=== PATIENT | female | born 1950 | race African-American/Black ===

== ENCOUNTER 2017-05-20 23:55 | Outpatient (CLI) | payer MEDICARE, OTHER | END 2017-05-20 23:56 | disposition short-term general hospital (02) | LOC: EMS 23:55 | PROVIDERS: ATTEND Surgery | DX: R00.2 Palpitations (principal) | CPT/HCPCS: A0425; A0427 ==

== ENCOUNTER 2023-04-06 07:18 | Emergency (ER) | payer MEDICARE, OTHER ==
--- NOTE | 2023-04-06 07:34 | ED Physician Documentation ---
PD HPI ABD PAIN - Stated complaint Stated Complaint: GI/ABD PX - Chief complaint Chief Complaint: Abd Pain - History obtained from History obtained from: Patient - History of Present Illness Timing - details: Gradual onset, Still present (she states the pain had been decreasing gradually since recent ER visit. Normal urination/stools. Noted some wisps of blood without clots in stool last night. Has had some mucous SD) Pain level max: 8 Pain level now: 4 Quality: Cramping, Aching, Pain Location: LLQ Radiation: No: Chest, Lower back, Left flank Improved by: No: Eating Worsened by: Moving, Palpation. No: Eating, Breathing Associated symptoms: Nausea. No: Fever, Diarrhea (loose but small in volume.) Similar symptoms before: Has not had sx before Recently seen: Emergency Dept (seen 3 days ago with similar symptmos And Dx with divertiulitis, Rx with Augmentin. Taking some iburpofen and Tyenol PRN.) Review of Systems Constitutional: denies: Fever, Chills Nose: denies: Rhinorrhea / runny nose, Congestion Throat: denies: Sore throat Respiratory: denies: Cough GI: reports: Abdominal Pain, Nausea, Bloody / black stool (today noted small wisps of blood in stool, no clots. Has some mucous.). 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, Other (breast bx - benign) HEENT: Tonsil/Adenoidectomy - Present Medications Home Medications: Ambulatory Orders Medication Instructions Recorded Confirmed hydroCHLOROthiazide 25 mg PO DAILY 05/17/15 04/02/23 [Hydrochlorothiazide] Amox/Clav 875/125 [Augmentin] 1 tab PO Q12H #20 tablet 04/02/23 - Allergies Allergies/Adverse Reactions: Allergies Allergy/AdvReac Type Severity Reaction Status Date / Time doxycycline AdvReac Severe Nausea Verified 04/06/23 07:26 - Social History Does the pt smoke?: No Smoking Status: Never smoker Does the pt drink ETOH?: No Does the pt have substance abuse?: No - Immunizations Immunizations are current?: Yes PD ED PE NORMAL - Vitals Vital signs reviewed: Yes - General General: Alert and oriented X 3, No acute distress, Well developed/nourished - Neck Neck: Supple, no meningeal sign, No adenopathy - Cardiac Cardiac: RRR, No murmur - Respiratory Respiratory: Clear bilaterally - Abdomen Abdomen: Normal bowel sounds, Soft, Non distended, No organomegaly, Other (tender without guarding nor percussion tenderness left lower abd. ) - Derm Derm: Normal color, Warm and dry - Extremities Extremities: No edema, No calf tenderness / cord - Neuro Neuro: Alert and oriented X 3, No motor deficit, Normal speech Results - Vitals Vitals: Vital Signs - 24 hr 04/06/23 04/06/23 07:24 09:47 Temperature 35.9 C L Heart Rate 72 64 Respiratory 20 20 Rate Blood Pressure 172/82 H 161/80 H O2 Saturation 97 100 Oxygen O2 Source Room air - Rads (name of study) abd/pelvic VT Relevant Findings:: Prelim report reviewed (minimal findings c/s diverticulitis sigmoid area. Less evident than recent other CT. ), See rad report PD Medical Decision Making - ED course Complexity details: reviewed results (no abscess nor perforation. The description of findings today seem less prominent than prior one. So I would have her continue Augmentin, and add NSAIDs, progress diet. Unclear the casue of increased pain last night. Might have been intestinal spasm, unsure. ), considered differential (abd not much tender. She did have increased pain for few hours last night, with some trace of blood in stool this morning. These were on list of things to watch for. Will get repeat CT to eval for perforation/abscess/obstruction. ), d/w patient Departure - Departure Disposition: 01 Home, Self Care Clinical Impression: Acute diverticulitis Condition: Stable Record reviewed to determine appropriate education?: Yes Comments: Your CT scan today does not show any complications of the diverticulitis. No abscesses nor perforation. No other abnormality to account for the pain such as kidney stones etc. The degree of inflammation today compared to 4 days ago does seem improving. As such I would have you continue with the Augmentin. You can have a more regular diet if you would like. Stay well-hydrated. Consider adding some anti-inflammatory such as ibuprofen or naproxen twice daily to help with pains or inflammation. A little bit of bleeding with diverticulitis is not uncommon. Return if increased amount of bleeding, fevers, increased pain, vomiting or other concerns. It is unclear the cause of the severe pain episode you had last night. Consideration could be an intestinal spasm in the area of the inflammation. Return if recurrent episodes that way. Forms: PCP List Discharge Date/Time: 04/06/23 10:52
[2023-04-06] MEDS ORDERED: iohexoL-300 100 ML VIAL ONE (09:29)
[2023-04-06] MEDS ORDERED: KETOROLAC 15 MG/ML VIAL IVP STA (09:31)
[2023-04-06] MEDS ORDERED: iohexoL-300 100 ML VIAL IVP ONE (09:43)
--- NOTE | 2023-04-06 09:45 | CT Report ---
PROCEDURE: ABDOMEN/PELVIS W INDICATIONS: recent Dx diverticulitis; worse pain last evening CONTRAST: 100 omni 300 TECHNIQUE: After the administration of intravenous contrast, 5 mm thick sections acquired from the diaphragms to the symphysis. 5 mm thick coronal and sagittal reformats were acquired. For radiation dose reducti on, the following was used: automated exposure control, adjustment of mA and/or kV according to jonathan ent size. COMPARISON: 04/02/2023 FINDINGS: Image quality: Excellent. Lung bases and heart: Unremarkable. Liver: No solid mass. Gallbladder and biliary tree: Surgically absent Spleen: No splenomegaly. Pancreas: No pancreatic ductal dilation. Adrenals: No adrenal nodule. Kidneys and ureters: No hydronephrosis. No renal cystic lesion which requires follow up. No solid mas s. Bowel and peritoneum: No bowel distension. No pathologic free fluid. There is moderately advanced sig moid diverticulosis. Question very subtle changes of diverticulitis. No development of free air or fr ee fluid or abscess cavity. Lymph nodes: No central or retroperitoneal adenopathy. Vessels: No infrarenal aortic aneurysm. PELVIS Reproductive organs: Uterus is surgically absent. No adnexal masses.. Bladder: No abnormal wall thickening, accounting for underdistension. Pelvic lymph nodes: No pelvic adenopathy by size criteria. Bones: No aggressive osseous abnormality. Other: No significant ventral or inguinal hernia. IMPRESSION: 1. Moderately advanced sigmoid diverticulosis with question of subtle changes of diverticulitis. Find ings are stable. No free air or free fluid or abscess cavity. 2. Remote cholecystectomy and hysterectomy. Reviewed by: Julio Edgar MD on 04/06/2023 9:43 AM PDT Approved by: Julio Edgar MD on 04/06/2023 9:43 AM PDT Station ID: [id number]
[2023-04-06 09:56] VITALS: BP 161/80
== END 2023-04-06 10:52 | disposition home or self-care (01) ==
LOC: ED 07:18
DX: K57.32 Diverticulitis of large intestine without perforation or abscess without bleeding (principal)
CPT/HCPCS: 74177; 96374; 99282; 99284; Q9967

== ENCOUNTER 2023-06-15 11:51 | Emergency (ER) | payer MEDICARE, OTHER ==
[2023-06-15 12:13] VITALS: O2SAT 100
[2023-06-15] MEDS ORDERED: KETOROLAC 15 MG/ML VIAL IVP STA (12:24)
[2023-06-15] MEDS ORDERED: SODIUM CHLORIDE 0.9% 1,000 ML IV STA (12:25)
[2023-06-15 12:40] LABS: BASOPHILS % (AUTO) 0.6 %; EOSINOPHILS % (AUTO) 0.3 %; HCT - HEMATOCRIT 44.6 % (37.0-47.0); HGB - HEMOGLOBIN 15.2 g/dL (12.0-16.0); LYMPHOCYTES # (AUTO) 1.4 10^3/uL (1.5-3.5); LYMPHOCYTES % (AUTO) 20.8 %; MEAN CORPUSCULAR HEMOGLOBIN 28.1 pg (27.0-31.0); MEAN CORPUSCULAR HGB CONC 34.1 g/dL (32.0-36.0); MEAN CORPUSCULAR VOLUME 82.4 fL (81.0-99.0); MEAN PLATELET VOLUME 8.9 fL (7.9-10.8); MONOCYTES # (AUTO) 0.4 10^3/uL (0.0-1.0); MONOCYTES % (AUTO) 5.6 %; NEUTROPHILS % (AUTO) 72.3 %; PLT - PLATELET COUNT 281 10^3/uL (130-450); RED BLOOD COUNT 5.41 10^6/uL (4.20-5.40); RED CELL DISTRIBUTION WIDTH 12.5 % (12.0-15.0); WHITE BLOOD COUNT 6.9 x10^3/uL (4.8-10.8)
[2023-06-15 12:47] LABS: BILIRUBIN,URINE NEGATIVE (NEGATIVE); CLARITY,URINE CLEAR (CLEAR); GLUCOSE, URINE (UA) NEGATIVE (NEGATIVE); KETONES,URINE (UA) NEGATIVE (NEGATIVE); LEUKOCYTE ESTERASE, URINE NEGATIVE (NEGATIVE); NITRITE,URINE NEGATIVE (NEGATIVE); OCCULT BLOOD,URINE NEGATIVE (NEGATIVE); PROTEIN,URINE NEGATIVE (NEGATIVE); UROBILINOGEN,URINE 0.2 (NORMAL) E.U./dL (NORMAL)
[2023-06-15 12:52] LABS: ALBUMIN 4.7 g/dL (3.2-5.5); ALBUMIN/GLOBULIN RATIO 1.8 (1.0-2.2); BILIRUBIN,TOTAL 0.9 mg/dL (0.2-1.0); CALCIUM 9.9 mg/dL (8.5-10.3); CREATININE 0.5 mg/dL (0.6-1.3); POTASSIUM 3.2 mmol/L (3.5-4.5); TOTAL PROTEIN 7.3 g/dL (6.4-8.9)
[2023-06-15] MEDS ORDERED: POTASSIUM BICARB 25 MEQ TABLET PO STA (13:01)
--- NOTE | 2023-06-15 13:49 | ED Physician Documentation ---
PD HPI ABD PAIN - Stated complaint Stated Complaint: ABD PX/D - Chief complaint Chief Complaint: Abd Pain - History obtained from History obtained from: Patient - Additional information Additional information: Pt is a 73 yo female with history Of diverticulitis presenting for evaluation of intermittent right lower abdominal pain since having a colonoscopy a few months ago. Patient states that she was seen here this summer for diverticulitis which was found on the left side and had an outpatient colonoscopy done at [facility] that showed extensive colonic diverticulosis. She reports having had intermittent episodes of right lower quadrant pain since that time. No nausea or vomiting. No bloody stools. No diarrhea and she has had several bowel movements today. No chest pain, shortness of air or fever. Review of Systems Constitutional: denies: Fever Cardiac: denies: Chest pain / pressure Respiratory: denies: Dyspnea GI: reports: Abdominal Pain. 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, Other HEENT: Tonsil/Adenoidectomy - Present Medications Home Medications: Ambulatory Orders Medication Instructions Recorded Confirmed hydroCHLOROthiazide 25 mg PO DAILY 05/17/15 04/02/23 [Hydrochlorothiazide] - Allergies Allergies/Adverse Reactions: Allergies Allergy/AdvReac Type Severity Reaction Status Date / Time doxycycline AdvReac Severe Nausea Verified 06/15/23 12:38 - Social History Does the pt smoke?: No Smoking Status: Never smoker Does the pt drink ETOH?: No Does the pt have substance abuse?: No - Immunizations Immunizations are current?: Yes PD ED PE NORMAL - General General: Alert and oriented X 3, No acute distress, Well developed/nourished - HEENT HEENT: Atraumatic, Moist mucous membranes, Pharynx benign - Neck Neck: Supple, no meningeal sign - Cardiac Cardiac: RRR, No murmur - Respiratory Respiratory: No respiratory distress, Clear bilaterally - Abdomen Abdomen: Normal bowel sounds, Soft, Non distended, Other (Mild generalized lower abdominal tenderness, no rebound, no guarding) - Derm Derm: Warm and dry - Neuro Neuro: Normal speech Results - Vitals Vitals: Vital Signs - 24 hr 06/15/23 06/15/23 12:05 14:26 Temperature 36.1 C L Heart Rate 78 68 Respiratory 18 68 H Rate Blood Pressure 185/81 H 171/81 H O2 Saturation 100 100 Oxygen O2 Source Room air - Labs Labs: Laboratory Tests 06/15/23 06/15/23 06/15/23 12:29 12:33 12:33 WBC 6.9 RBC 5.41 H Hgb 15.2 Hct 44.6 MCV 82.4 MCH 28.1 MCHC 34.1 RDW 12.5 Plt Count 281 MPV 8.9 Neut # (Auto) 5.0 Lymph # (Auto) 1.4 L [place] # (Auto) 0.4 Eos # (Auto) 0.0 Baso # (Auto) 0.0 Absolute Nucleated RBC 0.00 Nucleated RBC % 0.0 Sodium 137 Potassium 3.2 L Chloride 100 L Carbon Dioxide 27 Anion Gap 10.0 BUN 13 Creatinine 0.5 L Estimated GFR (MDRD) 147 Glucose 107 H Calcium 9.9 Total Bilirubin 0.9 AST 15 ALT 19 Alkaline Phosphatase 75 Total Protein 7.3 Albumin 4.7 Globulin 2.6 Albumin/Globulin Ratio 1.8 Lipase 46 Urine Color YELLOW Urine Clarity CLEAR Urine pH 6.0 Ur Specific [place] <=1.005 Urine Protein NEGATIVE Urine Glucose (UA) NEGATIVE Urine Ketones NEGATIVE Urine Occult Blood NEGATIVE Urine Nitrite NEGATIVE Urine Bilirubin NEGATIVE Urine Urobilinogen 0.2 (NORMAL) Ur Leukocyte Esterase NEGATIVE Ur Microscopic Review NOT INDICATED PD Medical Decision Making - ED course Complexity details: reviewed results, re-evaluated patient, d/w patient ED course: Patient is a 73-year-old female presenting for evaluation of right lower abdominal pain since this morning. Has had intermittent episodes since having a colonoscopy a few months ago. Has a history of diverticulitis. Vital signs are stable. Overall abdominal exam is benign with no signs of peritonitis. CBC, chemistries were obtained and reviewed and without significant findings. CT scan of the abdomen pelvis which I reviewed is negative for diverticulitis or other acute process. Patient is feeling better here with IV fluids, Toradol, Zofran. She is counseled on continued supportive care as well as need for close follow-up with PCP or GI should her symptoms continue. She is also advised on strict return precautions for any worsening symptoms. Departure - Departure Disposition: 01 Home, Self Care Clinical Impression: Lower abdominal pain Condition: Stable Instructions: ED Abdominal Pain Female Non-Specific Abdominal Pain Comments: Your labs are reassuring today with a normal white count. Your potassium was slightly low and I did give you a potassium pill. Your CT scan does not reveal any sources for your pain including no signs of appendicitis or diverticulitis at this time. I would recommend close follow-up with your primary care provider. Return to the emergency department with any worsening symptoms. Forms: PCP List Discharge Date/Time: 06/15/23 14:26
--- NOTE | 2023-06-15 13:55 | CT Report ---
PROCEDURE: CT abdomen pelvis with contrast INDICATIONS: RLQ pain TECHNIQUE: Helical axial CT of the abdomen and pelvis was obtained after intravenous contrast adminis tration and reformatted in multiple planes. Radiation dose reduction was achieved using automated exp osure control or adjustment of mA and/or kV according to patient size. COMPARISON: None FINDINGS: Lower thorax: The lung bases are clear. Heart size normal. No hiatal hernia. Liver: Normal in size and attenuation. No contour deformity present. Biliary system: Cholecystectomy Pancreas: Unremarkable without mass or inflammation evident. Spleen: Normal in size and density. Adrenals: Normal morphology and density. Reproductive system: Hysterectomy Urinary system: Normal renal size and attenuation. No renal calculi, hydronephrosis, or solid mass p resent. Urinary bladder unremarkable. Left renal cyst Gastrointestinal system: Multiple diverticula arise from the sigmoid colon without evidence of diver ticulitis. No evidence of bowel obstruction Appendix: Normal appendix identified. Peritoneal spaces: No mesenteric or retroperitoneal adenopathy. No free air. No free fluid. Vasculature: The IVC, aorta and iliac vasculature are unremarkable. Abdominal wall: Abdominal wall is intact without evidence of ventral or inguinal hernias. Musculoskeletal: Normal bone mineralization. No acute fractures. IMPRESSION: No acute CT findings in the abdomen and pelvis. Normal appendix identified. No appendicitis. Diverticulosis without evidence of diverticulitis Reviewed by: Mahad Siegel MD on 06/15/2023 12:53 PM [email or web address] Approved by: Mahad Siegel MD on 06/15/2023 12:53 PM AKFARHAD Station ID: [id number]
[2023-06-15 14:33] VITALS: BP 171/81
[2023-06-15] MEDS ORDERED: iohexoL-300 100 ML VIAL IVP ONE (15:05)
== END 2023-06-15 14:26 | disposition home or self-care (01) ==
LOC: ED 11:51
DX: R10.31 Right lower quadrant pain (principal); I10 Essential (primary) hypertension; Z79.899 Other long term (current) drug therapy
CPT/HCPCS: 36415; 74177; 80053; 81003; 83690; 85025; 96374; 99283; 99284; A9270; Q9967; 81001

== ENCOUNTER 2024-04-21 19:12 | Emergency (ER) | payer MEDICARE, OTHER ==
[2024-04-21 19:49] LABS: BASOPHILS % (AUTO) 0.4 %; EOSINOPHILS # (AUTO) 0.1 10^3/uL (0.0-0.7); EOSINOPHILS % (AUTO) 1.6 %; HCT - HEMATOCRIT 40.8 % (37.0-47.0); HGB - HEMOGLOBIN 14.4 g/dL (12.0-16.0); LYMPHOCYTES # (AUTO) 2.4 10^3/uL (1.5-3.5); LYMPHOCYTES % (AUTO) 32.2 %; MEAN CORPUSCULAR HEMOGLOBIN 28.2 pg (27.0-31.0); MEAN CORPUSCULAR HGB CONC 35.3 g/dL (32.0-36.0); MONOCYTES # (AUTO) 0.5 10^3/uL (0.0-1.0); MONOCYTES % (AUTO) 6.1 %; NEUTROPHILS # (AUTO) 4.4 10^3/uL (1.5-6.6); NEUTROPHILS % (AUTO) 59.4 %; PLT - PLATELET COUNT 271 10^3/uL (130-450); RED CELL DISTRIBUTION WIDTH 12.3 % (12.0-15.0); WHITE BLOOD COUNT 7.5 x10^3/uL (4.8-10.8)
--- NOTE | 2024-04-21 19:55 | ED Physician Documentation ---
History of Present Illness - Stated complaint Stated Complaint: HEART PALPITATIONS - Chief complaint Chief Complaint: Cardiac - Additonal information Additional information: Patient is a 74-year-old female who presents to the emergency department with symptoms of palpitations. Symptoms started around 2 PM and have been going on every other minute according to patient. She denies feeling lightheadedness dizzy short of breath or any pain associated with the symptoms. She took her pulse at home and noted it was normal so she came to the emergency department. Patient has a history of hypertension and takes hydrochlorothiazide and prev iously was on atenolol but stopped this medication as it made her lightheaded. She notes this was multiple years ago. She has no history of atrial fibrillation no history of SVT. She denies any recent diarrhea nausea or vomiting. She denies any fevers cough chills. 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[employer]: Hysterectomy, Other HEENT: Tonsil/Adenoidectomy - Present Medications Home Medications: Ambulatory Orders Medication Instructions Recorded Confirmed hydroCHLOROthiazide 25 mg PO DAILY 05/17/15 04/21/24 [Hydrochlorothiazide] Potassium Chloride [Klor-Con] 20 meq PO DAILY #10 packet 04/21/24 - Allergies Allergies/Adverse Reactions: Allergies Allergy/AdvReac Type Severity Reaction Status Date / Time doxycycline AdvReac Severe Nausea Verified 04/21/24 19:19 - Social History Does the pt smoke?: No Smoking Status: Never smoker Does the pt drink ETOH?: No Does the pt have substance abuse?: No - Immunizations Immunizations are current?: Yes PD ED PE NORMAL - Vitals Vital signs reviewed: Yes - General General: Alert and oriented X 3 - HEENT HEENT: Atraumatic - Neck Neck: Supple, no meningeal sign - Cardiac Cardiac: RRR, No murmur, No gallop, No rub, Strong equal pulses - Respiratory Respiratory: No respiratory distress, Clear bilaterally - Abdomen Abdomen: Normal bowel sounds - Female Female : Deferred - Rectal Rectal: Deferred - Back Back: No CVA TTP - Derm Derm: Normal color - Extremities Extremities: No deformity - Neuro Neuro: Alert and oriented X 3 - Psych Psych: Normal mood, Normal affect Results - Vitals Vitals: Vital Signs - 24 hr 04/21/24 04/21/24 19:20 20:09 Temperature 36.7 C Heart Rate 66 72 Respiratory 18 16 Rate Blood Pressure 180/80 H 174/99 H O2 Saturation 100 99 Oxygen O2 Source Room air - EKG (time done) 1920 EKG releavant findings:: EKG personally interpreted by author of this note. Relevant findings are: Rate: Rate (enter#), Gerardo, Tachy, Other Rhythm: NSR [place]: Normal Intervals: Normal ND QRS: Normal Ischemia: Normal ST segments Compare to prior EKG: Old EKG unavailable Computer interpretation: Agree with computer - Labs Labs: Laboratory Tests 04/21/24 04/21/24 04/21/24 19:44 19:44 19:44 WBC 7.5 RBC 5.10 Hgb 14.4 Hct 40.8 MCV 80.0 L MCH 28.2 MCHC 35.3 RDW 12.3 Plt Count 271 MPV 9.0 Neut # (Auto) 4.4 Lymph # (Auto) 2.4 [place] # (Auto) 0.5 Eos # (Auto) 0.1 Baso # (Auto) 0.0 Absolute Nucleated RBC 0.00 Nucleated RBC % 0.0 Sodium 135 Potassium 3.0 L Chloride 100 L Carbon Dioxide 27 Anion Gap 8.0 BUN 13 Creatinine 0.6 Estimated GFR (MDRD) 119 Glucose 102 Calcium 9.9 Magnesium 1.6 L Total Bilirubin 0.7 AST 16 ALT 16 Alkaline Phosphatase 62 Troponin I High Sens 3.6 Total Protein 6.7 Albumin 4.2 Globulin 2.5 Albumin/Globulin Ratio 1.7 TSH 3.46 PD Medical Decision Making - ED course Complexity details: reviewed old records, reviewed results ED course: Patient is a 74-year-old female with past medical history of hypertension presents to the emergency department with feelings of palpitations that started around 2 PM. Patient was at rest when symptoms started. She denies any associated symptoms including chest pain shortness of breath dizziness or lightheadedness. Vitals on arrival show patient is nontachycardic blood pressure slightly elevated in the 180s she did endorse taking her hydrochlorothiazide today. Physical exam is unremarkable. Pulses intact in upper and lower extremities. Normal cardiac and lung sounds on auscultation. Labs obtained here in the emergency department showed no significant leukocytosis. Potassium noted at 3.0 and magnesium at 1.6. Will replace here in the emergency department. Patient remained on telemetry while here in the emergency department. No signs of arrhythmias here in the emergency department. TSH is within normal range and no other significant electrolyte abnormality. Symptoms of palpitations could be secondary to hypokalemia and hypomagnesemia causing patient's symptoms. Discussed with patient we will replace here in the emergency department and give oral potassium supplements for patient to take at home. She is instructed to increase fruit and vegetable intake to help with symptoms at home as well. She will follow-up with her primary care doctor for reevaluation in 1 week to ensure no persistent hypokalemia. Will keep patient on hydrochlorothiazide but she has had adverse reactions to other antihypertensives. Discussed with patient we will have her on potassium supplements to help prevent worsening hypokalemia. Patient understands and is agreeable with this plan.Patient instructed to return with any dizziness lightheadedness persistent palpitations chest pain or shortness of breath. Patient understands and is agreeable with this plan. Departure - Departure Disposition: 01 Home, Self Care Clinical Impression: Hypokalemia, Hypomagnesemia Condition: Good Instructions: Hypokalemia Dc, Diet High Potassium Dc Comments: You were seen here in the emergency department your workup showed low potassium and magnesium levels this could explain your palpitations no arrhythmias noted on your EKG or on telemetry while you were monitored here. Follow-up with your PCP for recheck of these labs in 1 week. Return to the emergency department for any chest pain dizziness lightheadedness shortness of breath. Forms: PCP List
[2024-04-21 20:08] LABS: ALBUMIN 4.2 g/dL (3.2-5.5); ALBUMIN/GLOBULIN RATIO 1.7 (1.0-2.2); BILIRUBIN,TOTAL 0.7 mg/dL (0.2-1.0); CALCIUM 9.9 mg/dL (8.5-10.3); CREATININE 0.6 mg/dL (0.6-1.3); MAGNESIUM 1.6 mg/dL (1.7-2.3); TOTAL PROTEIN 6.7 g/dL (6.4-8.9)
[2024-04-21 20:10] LABS: TROPONIN I HIGH SENSITIVITY 3.6 ng/L (2.3-14.8)
[2024-04-21] MEDS: POTASSIUM CHLOR 10 MEQ/100 ML 10 MEQ/100 ML BAG IV STA (21:26)
[2024-04-21] MEDS: POTASSIUM CHLORIDE 20 MEQ TABLET PO STA (21:26)
[2024-04-21] MEDS: MAGNESIUM SULFATE 1 GM/2 ML VIAL IVP STA (21:29)
[2024-04-21] MEDS: MAGNESIUM SULFATE 2 GRAM 2 GM/50 ML BAG IV ONE (22:18)
[2024-04-21 22:58] VITALS: BP 152/72; O2SAT 98
== END 2024-04-21 22:51 | disposition home or self-care (01) ==
LOC: ED 19:12
DX: E87.6 Hypokalemia (principal); E83.42 Hypomagnesemia; I10 Essential (primary) hypertension
CPT/HCPCS: 36415; 80053; 83735; 84443; 84484; 85025; 93005; 96365; 96368; 99283; 99284; A9270

== ENCOUNTER 2024-05-07 17:31 | Emergency (ER) | payer MEDICARE, OTHER ==
[2024-05-07 18:04] VITALS: BP 186/99; O2SAT 100
--- NOTE | 2024-05-07 18:10 | ED Physician Documentation ---
History of Present Illness - Stated complaint Stated Complaint: HIGH BP - Chief complaint Chief Complaint: Cardiac - History obtained from History obtained from: Patient - Additonal information Additional information: 74-year-old woman with history of hypertension, she was maintained long-term on hydrochlorothiazide but recently switched to telmisartan due to hypokalemia. That switch took place about a week ago. Blood pressure has been climbing over the last few days up to 180/90 today. She feels a little jittery but otherwise fine without chest pain, trouble breathing, urinary complaints or pedal edema. PD PAST MEDICAL HISTORY - Past Medical History Cardiovascular: Hypertension Respiratory: None Neuro: None Endocrine/Autoimmune: None GI: Diverticulitis - Past Surgical History Past Surgical History: Yes /YOGA TEACHER: Hysterectomy, Other HEENT: Tonsil/Adenoidectomy - Present Medications Home Medications: Ambulatory Orders Medication Instructions Recorded Confirmed Telmisartan 20 mg PO DAILY 05/07/24 05/07/24 - Allergies Allergies/Adverse Reactions: Allergies Allergy/AdvReac Type Severity Reaction Status Date / Time doxycycline AdvReac Severe Nausea Verified 04/21/24 19:19 - Social History Does the pt smoke?: No Smoking Status: Never smoker Does the pt drink ETOH?: No Does the pt have substance abuse?: No - Immunizations Immunizations are current?: Yes PD ED PE NORMAL - Vitals Vital signs reviewed: Yes - General General: Alert and oriented X 3, No acute distress - Cardiac Cardiac: RRR, No murmur - Respiratory Respiratory: No respiratory distress, Clear bilaterally - Abdomen Abdomen: Non tender Results - Vitals Vitals: Vital Signs - 24 hr 05/07/24 17:51 Temperature 36.2 C L Heart Rate 68 Respiratory 18 Rate Blood Pressure 186/99 H O2 Saturation 100 Oxygen O2 Source Room air PD Medical Decision Making - ED course ED course: She presents with elevated blood pressures in the setting of known hypertension and a recent medication switch. She is on telmisartan at the lowest dose and I advise she could easily double it pending follow-up. Departure - Departure Disposition: 01 Home, Self Care Clinical Impression: Hypertension Condition: Good Record reviewed to determine appropriate education?: Yes Instructions: ED HTN Established Comments: As discussed, I think it is fine for you to double or frankly even eventually triple your telmisartan. The dosing ranges from 20 mg up to 80 mg a day. So you can take it in extra dose tonight, another 20 mg so you have had a total of 40 today and then tomorrow morning you can take 40 and keep an eye on your blood pressure. Follow-up with your doctor as scheduled. Return for new or worsening symptoms.
== END 2024-05-07 18:15 | disposition home or self-care (01) ==
LOC: ED 17:31
DX: I10 Essential (primary) hypertension (principal)
CPT/HCPCS: 99281; 99283

== ENCOUNTER 2024-05-08 15:39 | Emergency (ER) | payer MEDICARE, OTHER ==
--- NOTE | 2024-05-08 15:48 | ED Physician Documentation ---
History of Present Illness - Stated complaint Stated Complaint: HIGH BP - History obtained from History obtained from: Patient - History of Present Illness Timing: Prior to arrival - Additonal information Additional information: Patient is a 74-year-old female presenting to the emergency department with past medical history of hypertension. Patient was seen yesterday for similar symptoms. She presents to the emergency today with persistent symptoms despite increasing her dose of Shahid10 to 40 mg this morning as she was instructed to. Patient previously was discontinued on hydrochlorothiazide slight about 2 weeks ago after having palpitations from hypokalemia. She notes her potassium levels were stable but her physician felt she should discontinue the hydrochlorothiazide and start on telmisartan instead. Patient denies any symptoms associated with elevated blood pressure readings no chest pain no headaches no vision changes noted shortness of breath no lower leg swelling. She notes she has been more anxious than usual with her blood pressure readings though. She denies any other palpitations. Patient wishes to restart on hydrochlorothiazide today due to persistent symptoms of telmisartan causing elevated blood pressure. PD PAST MEDICAL HISTORY - Past Medical History Cardiovascular: Hypertension Respiratory: None Neuro: None Endocrine/Autoimmune: None GI: Diverticulitis - Past Surgical History Past Surgical History: Yes /LABORER MINE: Hysterectomy, Other HEENT: Tonsil/Adenoidectomy - Present Medications Home Medications: Ambulatory Orders Medication Instructions Recorded Confirmed Telmisartan 20 mg PO DAILY 05/07/24 05/08/24 [place]-3/Dha/Epa/Fish Oil [Fish Oil 1 cap PO DAILY 05/08/24 05/08/24 1,000 mg Softgel] hydroCHLOROthiazide [Hydrodiuril] 25 mg PO DAILY #10 tablet 05/08/24 - Allergies Allergies/Adverse Reactions: Allergies Allergy/AdvReac Type Severity Reaction Status Date / Time doxycycline AdvReac Severe Nausea Verified 05/08/24 15:52 - Social History Does the pt smoke?: No Smoking Status: Never smoker Does the pt drink ETOH?: No Does the pt have substance abuse?: No - Immunizations Immunizations are current?: Yes PD ED PE NORMAL - Vitals Vital signs reviewed: Yes - General General: Alert and oriented X 3 - HEENT HEENT: Atraumatic - Neck Neck: Supple, no meningeal sign - Cardiac Cardiac: RRR, No murmur, No gallop, No rub - Respiratory Respiratory: No respiratory distress, Clear bilaterally - Abdomen Abdomen: Normal bowel sounds, Soft, Non tender, Non distended - Back Back: No CVA TTP, No spinal TTP - Derm Derm: Normal color, Warm and dry, No rash - Neuro Neuro: Alert and oriented X 3 Eye Opening: Spontaneous Motor: Obeys Commands Verbal: Oriented GCS Score: 15 - Psych Psych: Normal mood Results - Vitals Vitals: Oxygen O2 Source Room air - Labs Labs: Laboratory Tests 05/08/24 05/08/24 16:51 16:51 WBC 7.7 RBC 5.36 Hgb 14.8 Hct 44.3 MCV 82.6 MCH 27.6 MCHC 33.4 RDW 12.7 Plt Count 290 MPV 9.4 Neut # (Auto) 5.6 Lymph # (Auto) 1.6 [place] # (Auto) 0.5 Eos # (Auto) 0.1 Baso # (Auto) 0.0 Absolute Nucleated RBC 0.00 Nucleated RBC % 0.0 Sodium 139 Potassium 3.5 Chloride 106 Carbon Dioxide 24 Anion Gap 9.0 BUN 10 Creatinine 0.5 L Estimated GFR (MDRD) 147 Glucose 106 H Calcium 9.7 Total Bilirubin 0.8 AST 12 ALT 14 Alkaline Phosphatase 66 Troponin I High Sens 3.6 Total Protein 7.1 Albumin 4.3 Globulin 2.8 Albumin/Globulin Ratio 1.5 PD Medical Decision Making - ED course Complexity details: reviewed old records, reviewed results ED course: Tona is a 74 year old female who presents with persistently elevated blood pressure readings. She denies any symptoms associated with elevated blood pressure, with SBPs in the 180s. She was seen here yesterday for similar problem, and increased dose with temlisartan to 40 mg however, she took this dose this morning and yesterday and continues to have symptoms. Vitals are otherwise stable here and patient has no other acute complaints. Patient updated on reassuring findings on basic labs. Normal potassium and negative troponin and EKG. Discussed these findings with the patient and reassuring work-up. SHe was instructed to return to the ED with any worsening symptoms, nausea, vomiting, fevers, chest pain. Instructed patient to restart on the hydrochlorothiazide and increase potassium intake as well as continue on 20 of temlisartan. She will follow up with her PCP in one week for blood pressure rechecks. Departure - Departure Disposition: 01 Home, Self Care Clinical Impression: Elevated blood pressure reading with diagnosis of hypertension Condition: Good Prescriptions: hydroCHLOROthiazide [Hydrodiuril] 25 mg PO DAILY #10 tablet Comments: You were seen here in the emergency department for your elevated blood pressure reading your workup here in the emergency department showed no acute findings. You should continue with the new blood pressure medication telmisartan 20 mg and restart on your hydrochlorothiazide 25 mg. You should continue with a high potassium diet and follow-up with your PCP in 1 week for recheck of blood pressure and potassium levels. If you develop any chest pain shortness of breath dizziness lightheadedness return to the emergency department. Additionally monitor your blood pressures morning and night to ensure no sudden decreases or persistently elevated blood pressure readings. Forms: PCP List Discharge Date/Time: 05/08/24 17:55
[2024-05-08] MEDS: hydroCHLOROthiazide 25 MG TABLET PO STA (16:54)
[2024-05-08 16:56] LABS: BASOPHILS % (AUTO) 0.5 %; EOSINOPHILS # (AUTO) 0.1 10^3/uL (0.0-0.7); EOSINOPHILS % (AUTO) 0.8 %; HCT - HEMATOCRIT 44.3 % (37.0-47.0); HGB - HEMOGLOBIN 14.8 g/dL (12.0-16.0); LYMPHOCYTES # (AUTO) 1.6 10^3/uL (1.5-3.5); LYMPHOCYTES % (AUTO) 20.5 %; MEAN CORPUSCULAR HEMOGLOBIN 27.6 pg (27.0-31.0); MEAN CORPUSCULAR HGB CONC 33.4 g/dL (32.0-36.0); MEAN CORPUSCULAR VOLUME 82.6 fL (81.0-99.0); MEAN PLATELET VOLUME 9.4 fL (7.9-10.8); MONOCYTES # (AUTO) 0.5 10^3/uL (0.0-1.0); NEUTROPHILS # (AUTO) 5.6 10^3/uL (1.5-6.6); NEUTROPHILS % (AUTO) 71.9 %; PLT - PLATELET COUNT 290 10^3/uL (130-450); RED BLOOD COUNT 5.36 10^6/uL (4.20-5.40); RED CELL DISTRIBUTION WIDTH 12.7 % (12.0-15.0); WHITE BLOOD COUNT 7.7 x10^3/uL (4.8-10.8)
[2024-05-08 17:17] LABS: ALBUMIN 4.3 g/dL (3.2-5.5); ALBUMIN/GLOBULIN RATIO 1.5 (1.0-2.2); BILIRUBIN,TOTAL 0.8 mg/dL (0.2-1.0); CALCIUM 9.7 mg/dL (8.5-10.3); CREATININE 0.5 mg/dL (0.6-1.3); POTASSIUM 3.5 mmol/L (3.5-4.5); TOTAL PROTEIN 7.1 g/dL (6.4-8.9)
[2024-05-08 17:20] LABS: TROPONIN I HIGH SENSITIVITY 3.6 ng/L (2.3-14.8)
[2024-05-08 18:00] VITALS: BP 182/98; O2SAT 98
== END 2024-05-08 17:55 | disposition home or self-care (01) ==
LOC: ED 15:39
DX: I10 Essential (primary) hypertension (principal)
CPT/HCPCS: 36415; 80053; 84484; 85025; 93005; 99283; 99284; A9270

== ENCOUNTER 2024-06-02 17:45 | Emergency (ER) | payer MEDICARE, OTHER ==
--- NOTE | 2024-06-02 18:23 | ED Physician Documentation ---
History of Present Illness - Stated complaint Stated Complaint: BLURRY VISION - Chief complaint Chief Complaint: Neuro - Additonal information Additional information: 74-year-old female with history of hypertension, severe anxiety, diverticulitis presents emergency department for concerns of a brief episode of slurred speech that happened yesterday that lasted for under 2 minutes her is at bedside and said that she had food in her mouth and he did not notice any slurred speech. Patient also said that today she had a brief visual disturbance in her right peripheral vision field that lasted for under 2 minutes as well that has now fully resolved and her main concern is that maybe she is experiencing a stroke because the last couple weeks she has been having hypertension that has been poorly controlled that is now currently well- controlled. 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, Other HEENT: Tonsil/Adenoidectomy - Present Medications Home Medications: Ambulatory Orders Medication Instructions Recorded Confirmed Telmisartan 20 mg PO DAILY 05/07/24 06/02/24 [place]-3/Dha/Epa/Fish Oil [Fish Oil 1 cap PO DAILY 05/08/24 06/02/24 1,000 mg Softgel] hydroCHLOROthiazide [Hydrodiuril] 25 mg PO DAILY #10 tablet 05/08/24 06/02/24 - Allergies Allergies/Adverse Reactions: Allergies Allergy/AdvReac Type Severity Reaction Status Date / Time doxycycline AdvReac Severe Nausea Verified 06/02/24 17:51 - Social History Does the pt smoke?: No Smoking Status: Never smoker Does the pt drink ETOH?: No Does the pt have substance abuse?: No - Immunizations Immunizations are current?: Yes PD ED PE NORMAL - Vitals Vital signs reviewed: Yes - General General: Alert and oriented X 3, No acute distress, Well developed/nourished - HEENT HEENT: Atraumatic, PERRL, EOMI, Moist mucous membranes - Neck Neck: No bony TTP - Cardiac Cardiac: RRR, No murmur, No gallop, Strong equal pulses - Respiratory Respiratory: No respiratory distress, Clear bilaterally - Abdomen Abdomen: Normal bowel sounds, Soft, Non tender, Non distended, No organomegaly - Back Back: No CVA TTP - Derm Derm: Normal color, Warm and dry, No rash - Extremities Extremities: No edema, No calf tenderness / cord - Neuro Neuro: Alert and oriented X 3, 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, No motor deficit, No sensory deficit, Normal speech Eye Opening: Spontaneous Motor: Obeys Commands Verbal: Oriented GCS Score: 15 - Psych Psych: Normal mood, Normal affect Results - Vitals Vitals: Vital Signs - 24 hr 06/02/24 06/02/24 06/02/24 17:47 18:06 18:48 Temperature 36.1 C L Heart Rate 68 71 65 Respiratory 16 22 16 Rate Blood Pressure 179/79 H 190/82 H 139/72 H O2 Saturation 100 99 98 06/02/24 20:10 Temperature Heart Rate 67 Respiratory 16 Rate Blood Pressure 155/87 H O2 Saturation 98 Oxygen O2 Source Room air - EKG (time done) 1845 EKG releavant findings:: EKG personally interpreted by author of this note. Relevant findings are: Rate: Rate (enter#) (63) Rhythm: NSR [place]: Normal Intervals: Normal [place] QRS: Normal Ischemia: Normal ST segments Computer interpretation: Agree with computer - Labs Labs: Laboratory Tests 06/02/24 06/02/24 18:45 18:45 WBC 8.3 RBC 5.21 Hgb 14.5 Hct 42.3 MCV 81.2 MCH 27.8 MCHC 34.3 RDW 12.5 Plt Count 287 MPV 9.6 Neut # (Auto) 5.8 Lymph # (Auto) 2.0 [place] # (Auto) 0.5 Eos # (Auto) 0.1 Baso # (Auto) 0.0 Absolute Nucleated RBC 0.00 Nucleated RBC % 0.0 Sodium 132 L Potassium 3.3 L Chloride 99 L Carbon Dioxide 22 Anion Gap 11.0 BUN 11 Creatinine 0.6 Estimated GFR (MDRD) 119 Glucose 107 H Calcium 9.6 Magnesium 1.6 L Total Bilirubin 0.7 AST 17 ALT 19 Alkaline Phosphatase 69 Total Protein 6.7 Albumin 4.3 Globulin 2.4 Albumin/Globulin Ratio 1.8 Lipase 50 - Rads (name of study) Head CT without Relevant Findings:: Final report received, EMP independent interpretation of test, Other (No acute intracranial abnormalities or findings) Angio head neck Relevant Findings:: Final report received, EMP independent interpretation of test, Other (No acute arterial abnormalities in the head or neck.) PD Medical Decision Making - ED course ED course: 74-year-old female presents emergency department for brief episode of right visual field disturbance that lasted for under 2 minutes. Patient is very anxious and wanted to make sure that she was not having a stroke. NIH score 0 neurologically patient is completely intact. Head CT was complete without and no acute intracranial abnormalities are visualized. Head neck CTA was also complete for further evaluation and again no arterial head or neck abnormalities are visualized. Labs do not reveal any leukocytosis or anemia mild hypokalemia 40 mEq of potassium given orally for replacement and magnesium 1.6 400 mg magnesium oxide was given for replacement patient and is reassured by image results and has a follow-up appoint with her primary care provider in about a week or 2. She is safe for discharge at this time was told to follow-up with ophthalmology if she has the visual disturbance again. Return precautions given all questions answered. Departure - Departure Disposition: 01 Home, Self Care Clinical Impression: Hypokalemia, Transient vision disturbance Instructions: Hypokalemia Dc Comments: Thank you for trusting us with your care. We have completed a head CT as well as a CT angio head and neck and we are not seeing any acute abnormal findings. Please fill with your primary care provider as needed outpatient at your next scheduled appointment as well as your media supervisor if these vision abnormalities occur again. Forms: PCP List Discharge Date/Time: 06/02/24 20:41
[2024-06-02 18:51] VITALS: O2SAT 98
[2024-06-02 18:54] LABS: BASOPHILS % (AUTO) 0.4 %; EOSINOPHILS # (AUTO) 0.1 10^3/uL (0.0-0.7); EOSINOPHILS % (AUTO) 1.1 %; HCT - HEMATOCRIT 42.3 % (37.0-47.0); HGB - HEMOGLOBIN 14.5 g/dL (12.0-16.0); LYMPHOCYTES % (AUTO) 23.5 %; MEAN CORPUSCULAR HEMOGLOBIN 27.8 pg (27.0-31.0); MEAN CORPUSCULAR HGB CONC 34.3 g/dL (32.0-36.0); MEAN CORPUSCULAR VOLUME 81.2 fL (81.0-99.0); MEAN PLATELET VOLUME 9.6 fL (7.9-10.8); MONOCYTES # (AUTO) 0.5 10^3/uL (0.0-1.0); MONOCYTES % (AUTO) 5.4 %; NEUTROPHILS # (AUTO) 5.8 10^3/uL (1.5-6.6); NEUTROPHILS % (AUTO) 69.4 %; PLT - PLATELET COUNT 287 10^3/uL (130-450); RED BLOOD COUNT 5.21 10^6/uL (4.20-5.40); RED CELL DISTRIBUTION WIDTH 12.5 % (12.0-15.0); WHITE BLOOD COUNT 8.3 x10^3/uL (4.8-10.8)
[2024-06-02] MEDS ORDERED: iohexoL-300 100 ML VIAL ONE (18:59)
[2024-06-02 19:06] LABS: ALBUMIN 4.3 g/dL (3.2-5.5); ALBUMIN/GLOBULIN RATIO 1.8 (1.0-2.2); BILIRUBIN,TOTAL 0.7 mg/dL (0.2-1.0); CALCIUM 9.6 mg/dL (8.5-10.3); CREATININE 0.6 mg/dL (0.6-1.3); MAGNESIUM 1.6 mg/dL (1.7-2.3); POTASSIUM 3.3 mmol/L (3.5-4.5); TOTAL PROTEIN 6.7 g/dL (6.4-8.9)
[2024-06-02] MEDS: MAGNESIUM OXIDE 400 MG TABLET PO STA (19:16)
[2024-06-02] MEDS: POTASSIUM CHLORIDE 20 MEQ TABLET PO STA ×2 (19:16→19:24)
[2024-06-02] MEDS: iohexoL-300 100 ML VIAL IVP ONE (19:54)
--- NOTE | 2024-06-02 20:06 | CT Report ---
PROCEDURE: Head WO INDICATIONS: brief slurred speach, right peripheral vision gunter TECHNIQUE: Noncontrast 4.5 mm thick angled axial sections acquired from the foramen magnum to the vertex. For r adiation dose reduction, the following was used: automated exposure control, adjustment of mA and/or kV according to patient size. COMPARISON: None. FINDINGS: Image quality: Excellent. CSF spaces: Basal cisterns are patent. No extra-axial fluid collections. Ventricles are normal in size and shape. Brain: No midline shift. No intracranial masses or hemorrhage. Bello-white matter interface is norm al. Skull and face: Calvarium and visualized facial bones are intact, without suspicious lesions. Sinuses: Mild polypoidal mucosal thickening of the left maxillary sinus. IMPRESSION: No acute intracranial pathology. Reviewed by: Hesham Pimentel MD on 06/02/2024 8:05 PM PDT Approved by: Hesham Pimentel MD on 06/02/2024 8:05 PM PDT Station ID: [id number]
--- NOTE | 2024-06-02 20:09 | CT Report ---
PROCEDURE: Angio Head/Neck INDICATIONS: right peripheral vision changes, brief slurred spe TECHNIQUE: After the administration of intravenous contrast, 1 mm thick sections acquired from the aortic arch t hrough the [place]. 3-dimensional sdvklvs-ggmmlaimr-kixowxvmct (MIP) and/or volume renderin g reformats were acquired of the central intracranial vasculature and neck separately. For radiation dose reduction, the following was used: automated exposure control, adjustment of mA and/or kV acco rding to patient size. CONTRAST: 100 ML OMNI 300 COMPARISON: None. FINDINGS: Image quality: Diagnostic. HEAD CT: CSF Spaces: Basal cisterns are patent. No extra-axial fluid collections. Ventricles are normal in size and shape. Brain: No significant abnormality is seen for scanning technique. Skull and face: Calvarium and visualized facial bones appear intact, without suspicious lesions. Sinuses: Visualized sinuses and mastoids are clear. HEAD CT ANGIOGRAPHY: Anterior circulation: Intracranial internal carotid arteries are normal in size and flow. The flow within the paired anterior cerebral arteries is normal and symmetric. The flow within the middle cer ebral arteries is normal and symmetric. The anterior communicating artery is seen. No aneurysms are seen. Posterior circulation: Visualized portions of the vertebral arteries demonstrate normal caliber, and join to form a normal appearing basilar artery. Flow within the posterior cerebral arteries is norm al and symmetric. No aneurysms are seen. NECK CT ANGIOGRAPHY: Carotid system: The great vessels demonstrate a conventional anatomy as they arise from the aortic a rch. The origins of the common carotid arteries appear patent. The common carotid arteries demonstr ate normal caliber and courses. The bifurcation regions are both widely patent. The internal caroti d arteries demonstrate normal calibers and courses. Posterior circulation: The origins of the vertebral arteries both appear widely patent. The more lucas perior extracranial portions of both vertebral arteries also demonstrate normal courses and calibers. They join to form a normal appearing basilar artery. Soft tissues: Visualized neck soft tissues demonstrate no suspicious abnormalities. Bones: No suspicious bony lesions. Visualized cervical spine appears normally aligned. IMPRESSION: No significant intracranial arterial abnormality is seen. No significant abnormality is seen within the arteries of the neck. The estimate of stenosis included in the report of the imaging study was calculated using the NASCET method Reviewed by: Hesham Pimentel MD on 06/02/2024 8:07 PM PDT Approved by: Hesham Pimentel MD on 06/02/2024 8:07 PM PDT Station ID: [id number]
[2024-06-02 20:18] VITALS: BP 155/87
== END 2024-06-02 20:41 | disposition home or self-care (01) ==
LOC: ED 17:45
DX: H53.8 Other visual disturbances (principal); E87.6 Hypokalemia; I10 Essential (primary) hypertension; F41.9 Anxiety disorder, unspecified
CPT/HCPCS: 36415; 70450; 70496; 70498; 80053; 83690; 83735; 85025; 93005; 99284; A9270; Q9967